=== PATIENT | female | born 1945 | race Caucasian/White ===

== ENCOUNTER 2017-08-29 14:11 | Outpatient (CLI) | payer MEDICARE, BC | END 2017-08-29 14:12 | disposition home or self-care (01) | LOC: BICMAMMO 14:11 | PROVIDERS: ATTEND Internal Medicine | DX: Z12.31 Encounter for screening mammogram for malignant neoplasm of breast (principal); Z80.3 Family history of malignant neoplasm of breast | CPT/HCPCS: 77063; 77067 ==

== ENCOUNTER 2017-09-07 13:33 | Outpatient (CLI) | payer MEDICARE, BC | END 2017-09-07 13:34 | disposition home or self-care (01) | LOC: BICMAMMO 13:33 | PROVIDERS: ATTEND Internal Medicine | DX: R92.2 Inconclusive mammogram (principal); N64.89 Other specified disorders of breast | CPT/HCPCS: G0206; G0279 ==

== ENCOUNTER 2018-03-24 15:35 | Emergency (ER) | payer MEDICARE, BC ==
--- NOTE | 2018-03-24 18:22 | RAD ---
PA AND LATERAL CHEST: HISTORY: Chronic cough. Coughed up some bright red blood approximately 15 minutes prior to admission. COMPARISON: Chest x-ray from 04/10/2012. FINDINGS: Heart size is within normal limits. There is some pleural and parenchymal change in the left base, f airly similar in appearance to the previous exam. No new process is identified. IMPRESSION: Chronic appearing changes in the left lung base. No definite acute findings. POS: [facility]
== END 2018-03-24 17:06 | disposition home or self-care (01) ==
LOC: ERS 15:35
DX: R04.2 Hemoptysis (principal); M81.0 Age-related osteoporosis without current pathological fracture; E03.9 Hypothyroidism, unspecified; D56.1 Beta thalassemia; Z87.891 Personal history of nicotine dependence; Z79.899 Other long term (current) drug therapy
CPT/HCPCS: 71046

== ENCOUNTER 2018-03-25 11:49 | Emergency (ER) | payer MEDICARE, BC ==
[2018-03-25] MEDS ORDERED: ISOVUE-370 76%-LOCM 1 ML ONE (12:25)
[2018-03-25 13:10] LABS: #Basophils 0.1 thou/uL (0.0-0.2); #Monocytes 0.8 thou/uL (0.11-0.59); #Neutrophils 11.6 thou/uL (1.40-6.50); %Basophils 0.4 % (0.0-1.0); %Eosinophils 0.2 % (0.0-10.0); %Lymphocytes 7.5 % (21.0-51.0); %Monocytes 6.2 % (0.0-10.0); %Neutrophils 85.8 % (42.0-75.0); Hemoglobin 11.8 g/dL (12.0-16.0); Mean Corpuscular HGB CONC 31.9 g/dL (32.0-36.0); Mean Corpuscular Hemoglobin 21.1 pg (27.0-31.0); Mean Platelet Volume 8.2 fL (7.4-10.4); Platelet Count 341 thou/uL (130-400); RBC Distribution Width 13.8 % (11.5-14.5); White Blood Cell (WBC) Count 13.5 thou/uL (4.8-10.8)
[2018-03-25 13:15] LABS: PTT 30.3 SEC (22.9-36.1); Prothrombin Time 12.9 SEC (12.0-14.7)
[2018-03-25 13:25] LABS: Hypochromia SLIGHT = 6-15 cells (100X) (0-5/hpf); MDiff Complete? YES; Microcytosis SLIGHT = 6-15 cells (100X) (0-5/hpf); Ovalocytes SLIGHT = 2-5 cells (100X) (0-1/hpf); PLT Morphology Comment Appears Adequate
[2018-03-25 13:28] LABS: ALT (SGPT) 22 U/L (8-55); AST (SGOT) 27 U/L (5-34); Albumin 4.7 g/dL (3.4-4.8); Alkaline Phosphatase 71 U/L (40-150); Anion Gap 10 mmol/L (10-20); BUN (Urea Nitrogen) 21 mg/dL (9.8-20.1); Bilirubin, Total 1.1 mg/dL (0.2-1.2); Calc. Creatinine Clearance 0 mL/min (70-130); Calcium 9.7 mg/dL (7.8-10.44); Carbon Dioxide 30 mmol/L (23-31); Chloride 99 mmol/L (98-107); Estimated GFR-MDRD 70; Globulin 3.1 g/dL (2.4-3.5); Glucose 113 mg/dL (80-115); Iron 78 ug/dL (50-170); Potassium 4.9 mmol/L (3.5-5.1); Protein, Total 7.8 g/dL (6.0-8.3); Sodium 134 mmol/L (136-145)
[2018-03-25] MEDS ORDERED: cefTRIAXone\\ROCEPHIN 1 GM VIAL ONE (17:34)
--- NOTE | 2018-03-25 17:38 | CT ---
CTA THORAX UTILIZING IV CONTRAST AND PE PROTOCOL AND 3D REFORMATTED IMAGING: INDICATIONS: Hemoptysis. FINDINGS: No definite central or segmental pulmonary embolus is grossly evident. There are patchy areas of tree-in-bud nodularity with more prominent ground glass opacity within the right upper lobe, suspicious for bronchopneumonia. A similar appearing pattern is seen within the li ngula. There are also some patchy ground glass opacities within the medial right lower lobe. There is bronchiectasis and subsegmental volume loss within the left lower lobe, right middle lobe, a nd inferior lingula. The visualized upper abdomen reveals post surgical changes of a prior cholecystectomy. No focal hepa tic lesion is evident. There is diffuse osteopenia. There is scattered degenerative and osteoarthritic change. There is mi ld thoracolumbar scoliosis. IMPRESSION: 1. Findings most suspicious for multifocal bronchopneumonia. 2. Scattered bronchiectasis with subsegmental volume loss. 3. No central or segmental pulmonary embolus demonstrated. POS: [facility]
== END 2018-03-25 15:20 | disposition home or self-care (01) ==
LOC: ERS 11:49
DX: J18.9 Pneumonia, unspecified organism (principal); M81.0 Age-related osteoporosis without current pathological fracture; E03.9 Hypothyroidism, unspecified; Z87.891 Personal history of nicotine dependence; Z79.899 Other long term (current) drug therapy
CPT/HCPCS: 36415; 71275; 80053; 83540; 85025; 85610; 85730; 96365; J0696

== ENCOUNTER 2018-06-05 13:44 | Outpatient (CLI) | payer MEDICARE, BC ==
--- NOTE | 2018-06-05 15:54 | RAD ---
TWO VIEWS CHEST: Comparison: 03-24-18 History: Dyspnea. FINDINGS: Two views of the chest shows a normal sized cardiomediastinal silhouette. There is stable scarring in the lingula. Scarring is also seen in the right upper lobe. No new consolidation or pleural effusion are seen. IMPRESSION: Bilateral upper lobe scarring. POS: [facility]
== END 2018-06-05 13:45 | disposition home or self-care (01) ==
LOC: RAD 13:44
PROVIDERS: ATTEND Internal Medicine Critical Care Medicine
DX: R06.00 Dyspnea, unspecified (principal); J98.4 Other disorders of lung
CPT/HCPCS: 71046

== ENCOUNTER 2018-09-09 14:14 | Outpatient (CLI) | payer MEDICARE, BC ==
--- NOTE | 2018-09-11 15:32 | MMO ---
Bilateral MAMMO Bilat Screen [facility]. CLINICAL HISTORY: Patient is 73 years old and is seen for screening. The patient has the following family history of breast cancer: paternal grandmother. The patient has no personal history of cancer. VIEWS: The views performed were: bilateral craniocaudal with tomosynthesis and bilateral mediolateral oblique with tomosynthesis. FILMS COMPARED: The present examination has been compared to prior imaging studies performed at [facility] on 08/29/2017 and 09/07/2017, and at [facility] on 08/08/2012, 08/11/2013 and 08/18/2016. MAMMOGRAM FINDINGS: There are scattered fibroglandular densities. There are no suspicious masses, calcifications or areas of architectural distortion. IMPRESSION: THERE IS NO MAMMOGRAPHIC EVIDENCE OF MALIGNANCY. A ROUTINE FOLLOW-UP MAMMOGRAM IN 1 YEAR IS RECOMMENDED. THE RESULTS OF THIS EXAM WERE SENT TO THE PATIENT. ACR BI-RADS Category 1 - Negative MAMMOGRAPHY NOTE: 1. A negative mammogram report should not delay a biopsy if a dominant of clinically suspicious mass is present. 2. Approximately 10% to 15% of breast cancers are not detected by mammography. 3. Adenosis and dense breasts may obscure an underlying neoplasm.
== END 2018-09-09 14:15 | disposition home or self-care (01) ==
LOC: BICMAMMO 14:14
PROVIDERS: ATTEND Internal Medicine
DX: Z12.31 Encounter for screening mammogram for malignant neoplasm of breast (principal); Z80.3 Family history of malignant neoplasm of breast
CPT/HCPCS: 77063; 77067

== ENCOUNTER 2019-01-15 13:44 | Outpatient (CLI) | payer MEDICARE, BC ==
--- NOTE | 2019-01-15 14:57 | BD ---
Exam: DEXA Bone Density 01/15/19 HISTORY: 73-year-old postmenopausal female for screening. COMPARISON: 01/07/15. FINDINGS: Lumbar Spine: BMD (g/cm2) T-SCORE L1 0.751 -2.2 L2 0.827 -1.8 L3 0.735 -3.2 L4 0.753 -2.8 L1-L4 0.766 -2.6 Left Femoral Neck: 0.493 -3.2 Total Proximal Left Femur: 0.632 -2.5 Impression: Osteoporosis. When compared to the prior examination, the bone density in the hip has increased appro ximately 12% and the bone density in the spine has increased approximately 4%. POS: [facility]
== END 2019-01-15 13:45 | disposition home or self-care (01) ==
LOC: BICMAMMO 13:44
PROVIDERS: ATTEND Advanced Practice Midwife
DX: Z13.820 Encounter for screening for osteoporosis (principal); M81.0 Age-related osteoporosis without current pathological fracture
CPT/HCPCS: 77080

== ENCOUNTER 2019-07-22 14:20 | Outpatient (CLI) | payer MEDICARE, BC ==
--- NOTE | 2019-07-22 14:44 | RAD ---
2 VIEWS CHEST: Date: 07/22/2019 COMPARISON: 06/05/18. HISTORY: Shortness of breath. FINDINGS: Stable increased linear interstitial density and pulmonary hyperinflation. Heart and mediastinal cont ours are stable. Mild increased linear density is again seen in the left costophrenic angle region, l ess conspicuous than on the prior examination, suggesting scar. IMPRESSION: No acute findings. POS: [facility]
== END 2019-07-22 14:21 | disposition home or self-care (01) ==
LOC: RAD 14:20
PROVIDERS: ATTEND Internal Medicine Critical Care Medicine
DX: R06.00 Dyspnea, unspecified (principal)
CPT/HCPCS: 71046

== ENCOUNTER 2019-09-11 13:44 | Outpatient (CLI) | payer MEDICARE, BC ==
--- NOTE | 2019-09-11 14:16 | MMO ---
Bilateral MAMMO Bilat Screen [facility]. CLINICAL HISTORY: Patient is 74 years old and is seen for screening. The patient has the following family history of breast cancer: paternal grandmother. The patient has no personal history of cancer. VIEWS: The views performed were: bilateral craniocaudal with tomosynthesis and bilateral mediolateral oblique with tomosynthesis. FILMS COMPARED: The present examination has been compared to prior imaging studies performed at [facility] on 08/29/2017, 09/07/2017 and 09/09/2018. This study has been interpreted with the assistance of computer-aided detection. MAMMOGRAM FINDINGS: There are scattered fibroglandular densities. There are no suspicious masses, suspicious calcifications, or new areas of architectural distortion. IMPRESSION: THERE IS NO MAMMOGRAPHIC EVIDENCE OF MALIGNANCY. A ROUTINE FOLLOW-UP MAMMOGRAM IN 1 YEAR IS RECOMMENDED. THE RESULTS OF THIS EXAM WERE SENT TO THE PATIENT. ACR BI-RADS Category 1 - Negative MAMMOGRAPHY NOTE: 1. A negative mammogram report should not delay a biopsy if a dominant of clinically suspicious mass is present. 2. Approximately 10% to 15% of breast cancers are not detected by mammography. 3. Adenosis and dense breasts may obscure an underlying neoplasm. Reported by: TAQUERIA TOLBERT MD Electonically Signed: [id number]
== END 2019-09-11 13:45 | disposition home or self-care (01) ==
LOC: BICMAMMO 13:44
PROVIDERS: ATTEND Internal Medicine
DX: Z12.31 Encounter for screening mammogram for malignant neoplasm of breast (principal); Z80.3 Family history of malignant neoplasm of breast
CPT/HCPCS: 77063; 77067

== ENCOUNTER 2020-01-12 09:13 | Emergency (ER) | payer MEDICARE, BC, OTHER ==
[2020-01-13 15:24] LABS: SARS-CoV-2 MS2 Positive; SARS-CoV-2 N Gene Negative; SARS-CoV-2 S Gene Negative; SARS-CoV-2 orf1ab Negative
== END 2020-01-12 09:53 | disposition home or self-care (01) ==
LOC: ERS 09:13
DX: Z20.828 Contact with and (suspected) exposure to other viral communicable diseases (principal); E03.9 Hypothyroidism, unspecified; Z87.891 Personal history of nicotine dependence
CPT/HCPCS: 99283; U0003; 87635

== ENCOUNTER 2020-07-19 08:59 | Outpatient (CLI) | payer MEDICARE, BC ==
--- NOTE | 2020-07-19 09:17 | RAD ---
XR Chest Pa Lat STANDARD HISTORY: Dyspnea COMPARISON: 07/22/2019 and 06/05/2018 FINDINGS: The heart size is normal. The lungs are well expanded without focal areas of consolidation, pneumothorax or pleural effusions. Scarring in the lingula is again seen. IMPRESSION: No radiographic evidence of acute cardiopulmonary process.
== END 2020-07-19 09:00 | disposition home or self-care (01) ==
LOC: BICRAD 08:59
PROVIDERS: ATTEND Internal Medicine Critical Care Medicine
DX: R06.00 Dyspnea, unspecified (principal)
CPT/HCPCS: 71046

== ENCOUNTER 2020-09-13 13:35 | Outpatient (CLI) | payer MEDICARE, BC | END 2020-09-13 13:36 | disposition home or self-care (01) | LOC: BICMAMMO 13:35 | PROVIDERS: ATTEND Internal Medicine | DX: Z12.31 Encounter for screening mammogram for malignant neoplasm of breast (principal); R59.9 Enlarged lymph nodes, unspecified | CPT/HCPCS: 76536; 77063; 77067 ==

== ENCOUNTER 2021-07-19 13:04 | Outpatient (CLI) | payer MEDICARE, BC | END 2021-07-19 13:05 | disposition home or self-care (01) | LOC: RAD 13:04 | PROVIDERS: ATTEND Internal Medicine Critical Care Medicine | DX: R06.00 Dyspnea, unspecified (principal) | CPT/HCPCS: 71046 ==

== ENCOUNTER 2021-07-26 12:40 | Outpatient (CLI) | payer MEDICARE, BC | END 2021-07-26 12:41 | disposition home or self-care (01) | LOC: BICCT 12:40 | PROVIDERS: ATTEND Internal Medicine Critical Care Medicine | DX: R91.1 Solitary pulmonary nodule (principal); J47.9 Bronchiectasis, uncomplicated; R91.8 Other nonspecific abnormal finding of lung field | CPT/HCPCS: 71260; 82565 ==

== ENCOUNTER 2022-07-06 12:57 | Outpatient (CLI) | payer MEDICARE, BC | END 2022-07-06 12:58 | disposition home or self-care (01) | LOC: RAD 12:57 | PROVIDERS: ATTEND Family Medicine | DX: R91.1 Solitary pulmonary nodule (principal) | CPT/HCPCS: 71046 ==

== ENCOUNTER 2022-09-18 12:33 | Outpatient (CLI) | payer MEDICARE, BC | END 2022-09-18 12:34 | disposition home or self-care (01) | LOC: BICMAMMO 12:33 | PROVIDERS: ATTEND Internal Medicine | DX: Z12.31 Encounter for screening mammogram for malignant neoplasm of breast (principal) | CPT/HCPCS: 77063; 77067 ==

== ENCOUNTER 2023-07-05 13:01 | Outpatient (CLI) | payer MEDICARE, BC | END 2023-07-05 13:02 | disposition home or self-care (01) | LOC: RAD 13:01 | PROVIDERS: ATTEND Internal Medicine Critical Care Medicine | DX: R06.00 Dyspnea, unspecified (principal); J98.4 Other disorders of lung | CPT/HCPCS: 71046 ==

== ENCOUNTER 2024-07-29 13:12 | Outpatient (CLI) | payer BC | END 2024-07-29 13:13 | disposition home or self-care (01) | LOC: RAD 13:12 | PROVIDERS: ATTEND Internal Medicine Critical Care Medicine | DX: R06.00 Dyspnea, unspecified (principal); J44.9 Chronic obstructive pulmonary disease, unspecified; J98.4 Other disorders of lung | CPT/HCPCS: 71046 ==